=== PATIENT | female | born 2000 | race Caucasian/White ===

== ENCOUNTER 2020-12-06 10:07 | Outpatient (RCR) | payer OTHER, SELFPAY ==
--- NOTE | 2020-12-06 10:30 | PT.OIE ---
Current Diagnoses Dorsalgia, unspecified (12/06/20) Past Medical History (Last Reviewed 11/23/20 @ 10:02 by Kalyan Coles DO) Incontinence in female Migraine headache with aura Motion sickness Upper back pain, chronic Visit Care Team Role Provider Type Kalyan Coles DO Attending Provider Physician Family Provider Primary Care Provider Referring Provider Specialty: [facility] Practice Address: [address] [place] [address], [facility] Email: [email or web address] Physical Therapy Initial Evaluation PT-OP-A Visit Information Start: 12/06/20 07:55 Freq: Status: Active Protocol: Document 12/06/20 10:30 SAK (Rec: 12/07/20 10:25 SAK [id number]) Out-Patient Physical Therapy Visit Information Visit Information Visit Type Initial Evaluation Visit Start Time 10:30 Visit Stop Time 11:15 Total Visit Minutes 45 Visit Number 1 Evaluation Information Evaluation Date 12/06/20 PT-OP-B Current Condition Start: 12/06/20 07:55 Freq: Status: Active Protocol: Document 12/06/20 10:30 SAK (Rec: 12/07/20 10:25 SAK [id number]) Current Condition History of Current Condition Onset Date 3 1/2 years Current Complaints upper back pain History of Current Condition Patient c/o onset of function- limiting upper back pain after multi-day road trip with minimal rest breaks. Pain has continued since that time. States pain increases with prolonged standing or sitting. Does weight-lifting 3 days per week otherwise takes 30 min walks most days for exercise. Patient is a student and will be returning to campus in [place] 12/11/19. Is hoping to decrease her pain and improve her activity tolerance. Denies numbness or tingling. Prior Treatments and Tests medication; muscle relaxant, some helpful. No chiropractic , massage therapy, or PT. Occasionally has used ice or heat with only temporary relief. 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 PT-OP-C Subjective Start: 12/06/20 07:55 Freq: Status: Active Protocol: Document 12/06/20 10:30 SAK (Rec: 12/07/20 15:21 [facility] [id number]) Patient Questionnaires Oswestry Low Back Index Oswestry Score 24% PT-OP-G Mobility & Gait Start: 12/06/20 07:55 Freq: Status: Active Protocol: Document 12/06/20 10:30 SAK (Rec: 12/07/20 15:21 SAK [id number]) OP Mobility Evaluation Functional Movements Squats excess lumber lordosis OP Gait Assessment Comments Gait Comments excess lumbar lordosis with forward trunk lean PT-OP-H Neuro Start: 12/06/20 07:55 Freq: Status: Active Protocol: Document 12/06/20 10:30 SAK (Rec: 12/07/20 15:21 [facility] [id number]) Sensation Evaluation Gross Sensation Gross Sensation WNL PT-OP-J Posture/Palpation/Skin Start: 12/06/20 07:55 Freq: Status: Active Protocol: Document 12/06/20 10:30 SAK (Rec: 12/07/20 15:21 [facility] [id number]) Posture Evaluation Position Standing Head/C-Spine Posture Forward Head T-Spine Posture Flattened L-Spine Posture Increased Lordosis Shoulder Posture (L) Elevated Scapula Posture (L) Neutral,(R) Neutral Arm Posture (L) Internally Rotated,(R) Internally Rotated Pelvis Posture Anteriorly Tilted Weight Distribution Weight Shifted Anterior PT-OP-K Range of Motion Start: 12/06/20 07:55 Freq: Status: Active Protocol: Document 12/06/20 10:30 SAK (Rec: 12/07/20 15:21 [facility] [id number]) Lumbar Spine Range of Motion Lumbar Spine Active ROM Limitations Soft Tissue Tightness Comments patient with ROM WNL extension , sidebending and rotation, only able to get to neutral lumbar spine, no flexion in lumbar region PT-OP-M Strength Start: 12/06/20 07:55 Freq: Status: Active Protocol: Document 12/06/20 10:30 SAK (Rec: 12/07/20 15:21 SAK [id number]) Trunk Strength Trunk Manual Muscle Testing Flexion 3+ Fair+ Extension 4 Good Core Stabilization poor core stabilization ability statically and dynamically with function PT-OP-Q Treatments Start: 12/06/20 07:55 Freq: Status: Active Protocol: Document 12/06/20 10:30 SAK (Rec: 12/07/20 15:26 SAK [id number]) Self-Care/Home Management Treatment Education Patient Education Home Exercise Program,Pain Management,Posture PT-OP-T Assessment and Plan Start: 12/06/20 07:55 Freq: Status: Active Protocol: Document 12/06/20 10:30 SAK (Rec: 12/07/20 15:21 SAK [id number]) Physical Therapy Assessment Rehab Potential Rehabilitation Potential Good Evaluation Complexity Number of Personal Factors/Comorbidities 1-2 Number of Body Systems Impaired 3 Clinical Presentation at Evaluation Evolving Impairments Impairments Pain,Posture,Strength Goals Two Impairment core muscle weakness Mcc Goal (LTG) Patient to be independent and compliant with HEP for purposes of postural correction and core strengthening and stabilization LTG Duration 01/06/21 Three Impairment Pain with usual activities, sitting limited to 1 hour Watchmaker Apprentice Goal (LTG) Decrease pain with all usual activities by at least 50% LTG Duration 01/06/21 One Impairment Postural dysfunction in standing and sitting Watchmaker Apprentice Goal (LTG) Patient to demonstrate good understanding of neutral postural alignment and ability to assume neutral in sitting and standing without cues. LTG Duration 01/06/21 Assessment Summary Assessment Patient presents with function -limiting thoracic pain which appears largely due to postural dysfunction and muscle imbalance, and spinal stabilization weakness, habitual posturing and activities. Feel she would benefit from physical therapy to improve her posture and spinal stabilization ability, provide education for correct positioning for spinal protection and health. She will be returning to campus for college soon so PT will be limited at this site unless her travel plans change. She may need to seek out further PT in [place] once she returns to college. Physical Therapy Plan Frequency and Duration Frequency of Treatment 2x/Week Duration of Treatment 4 Plan of Care Start Date 12/06/20 Plan of Care End Date 01/06/21 Therapeutic Interventions Therapeutic Interventions Home Exercise Program,Manual Therapy,Neuromuscular Re- education,Patient/Caregiver Education,Self-Care/Home Management,Soft Tissue Mobilization,Taping, Therapeutic Activities, Therapeutic Exercises Modalities Cold Pack/Ice Massage,Hot Packs Next Visit Focus/Plan Next Note Type Treatment Note Next Visit Plan Review HEP, further education and training on neutral postural alignment with stabilization exercises. Evaluate sitting posture including when using computer. Add posterior pelvic tilt sitting and standing wall roll -up, segmental bridge with emphasis on lowering phase, knee to chest.
--- NOTE | 2020-12-06 10:30 | PT.OPPOC ---
Physical, Occupational & Speech Therapy At [facility] Current Diagnoses Dorsalgia, unspecified (12/06/20) Visit Care Team Role Provider Type Kalyan Coles DO Attending Provider Physician Family Provider Primary Care Provider Referring Provider Specialty: Family Practice Address: [address] [place] [address], [id number] Email: [email or web address] Plan Of Care PT-OP-T Assessment and Plan Start: 12/06/20 07:55 Freq: Status: Active Protocol: Document 12/06/20 10:30 SAK (Rec: 12/07/20 15:21 SAK [id number]) Physical Therapy Assessment Rehab Potential Rehabilitation Potential Good Evaluation Complexity Number of Personal Factors/Comorbidities 1-2 Number of Body Systems Impaired 3 Clinical Presentation at Evaluation Evolving Impairments Impairments Pain,Posture,Strength Goals Two Impairment core muscle weakness Risk Control Officer Goal (LTG) Patient to be independent and compliant with HEP for purposes of postural correction and core strengthening and stabilization LTG Duration 01/06/21 Three Impairment Pain with usual activities, sitting limited to 1 hour Jail Goal (LTG) Decrease pain with all usual activities by at least 50% LTG Duration 01/06/21 One Impairment Postural dysfunction in standing and sitting Risk Control Officer Goal (LTG) Patient to demonstrate good understanding of neutral postural alignment and ability to assume neutral in sitting and standing without cues. LTG Duration 01/06/21 Assessment Summary Assessment Patient presents with function -limiting thoracic pain which appears largely due to postural dysfunction and muscle imbalance, and spinal stabilization weakness, habitual posturing and activities. Feel she would benefit from physical therapy to improve her posture and spinal stabilization ability, provide education for correct positioning for spinal protection and health. She will be returning to campus for college soon so PT will be limited at this site unless her travel plans change. She may need to seek out further PT in [place] once she returns to college. Physical Therapy Plan Frequency and Duration Frequency of Treatment 2x/Week Duration of Treatment 4 Plan of Care Start Date 12/06/20 Plan of Care End Date 01/06/21 Therapeutic Interventions Therapeutic Interventions Home Exercise Program,Manual Therapy,Neuromuscular Re- education,Patient/Caregiver Education,Self-Care/Home Management,Soft Tissue Mobilization,Taping, Therapeutic Activities, Therapeutic Exercises Modalities Cold Pack/Ice Massage,Hot Packs Next Visit Focus/Plan Next Note Type Treatment Note Next Visit Plan Review HEP, further education and training on neutral postural alignment with stabilization exercises. Evaluate sitting posture including when using computer. Add posterior pelvic tilt sitting and standing wall roll -up, segmental bridge with emphasis on lowering phase, knee to chest. Plan of Care Dates Plan of Care Start Date 12/06/20 Plan of Care End Date 01/06/21 Electronically Signed by: Aicha Kaufman, PT 12/07/20 [id number] Please Sign and Return: I have reviewed this Plan of Care and certify that the skilled therapy services above are required to meet the patient?s needs. Physician Signature Date Printed Name and Credentials Clinical Instructor Signature Printed Name and Credentials
--- NOTE | 2021-03-03 16:08 | PT.OPDS ---
Current Diagnoses Dorsalgia, unspecified (12/06/20) Visit Care Team Role Provider Type Kalyan Coles DO Attending Provider Physician Family Provider Primary Care Provider Referring Provider Specialty: Family Practice Address: [address] [place] [address], [facility] Email: [email or web address] Visit Number Visit Number 1 Discharge Summary PT-OP-B Current Condition Start: 12/06/20 07:55 Freq: Status: Active Protocol: Document 12/06/20 10:30 SAK (Rec: 12/07/20 10:25 SAK [id number]) Current Condition History of Current Condition Onset Date 3 1/2 years Current Complaints upper back pain History of Current Condition Patient c/o onset of function- limiting upper back pain after multi-day road trip with minimal rest breaks. Pain has continued since that time. States pain increases with prolonged standing or sitting. Does weight-lifting 3 days per week otherwise takes 30 min walks most days for exercise. Patient is a student and will be returning to campus in [place] 12/11/19. Is hoping to decrease her pain and improve her activity tolerance. Denies numbness or tingling. Prior Treatments and Tests medication; muscle relaxant, some helpful. No chiropractic , massage therapy, or PT. Occasionally has used ice or heat with only temporary relief. 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 PT-OP-C Subjective Start: 12/06/20 07:55 Freq: Status: Active Protocol: Document 12/06/20 10:30 SAK (Rec: 12/07/20 15:21 SAK [id number]) Patient Questionnaires Oswestry Low Back Index Oswestry Score 24% PT-OP-G Mobility & Gait Start: 12/06/20 07:55 Freq: Status: Active Protocol: Document 12/06/20 10:30 SAK (Rec: 12/07/20 15:21 [facility] [id number]) OP Mobility Evaluation Functional Movements Squats excess lumber lordosis OP Gait Assessment Comments Gait Comments excess lumbar lordosis with forward trunk lean PT-OP-H Neuro Start: 12/06/20 07:55 Freq: Status: Active Protocol: Document 12/06/20 10:30 SAK (Rec: 12/07/20 15:21 [facility] [id number]) Sensation Evaluation Gross Sensation Gross Sensation WNL PT-OP-J Posture/Palpation/Skin Start: 12/06/20 07:55 Freq: Status: Active Protocol: Document 12/06/20 10:30 SAK (Rec: 12/07/20 15:21 [facility] [id number]) Posture Evaluation Position Standing Head/C-Spine Posture Forward Head T-Spine Posture Flattened L-Spine Posture Increased Lordosis Shoulder Posture (L) Elevated Scapula Posture (L) Neutral,(R) Neutral Arm Posture (L) Internally Rotated,(R) Internally Rotated Pelvis Posture Anteriorly Tilted Weight Distribution Weight Shifted Anterior PT-OP-K Range of Motion Start: 12/06/20 07:55 Freq: Status: Active Protocol: Document 12/06/20 10:30 [facility] (Rec: 12/07/20 15:21 [facility] [id number]) Lumbar Spine Range of Motion Lumbar Spine Active ROM Limitations Soft Tissue Tightness Comments patient with ROM WNL extension , sidebending and rotation, only able to get to neutral lumbar spine, no flexion in lumbar region PT-OP-M Strength Start: 12/06/20 07:55 Freq: Status: Active Protocol: Document 12/06/20 10:30 SAK (Rec: 12/07/20 15:21 [facility] [id number]) Trunk Strength Trunk Manual Muscle Testing Flexion 3+ Fair+ Extension 4 Good Core Stabilization poor core stabilization ability statically and dynamically with function PT-OP-T Assessment and Plan Start: 12/06/20 07:55 Freq: Status: Active Protocol: Document 03/03/21 16:07 SAK (Rec: 03/03/21 16:08 [facility] [id number]) Physical Therapy Plan Discharge Physical Therapy Discharge Reasons Patient Request
== END 2021-03-25 10:38 | disposition home or self-care (01) ==
LOC: PHYS 10:07
PROVIDERS: Family Provider Family Medicine; PCP Family Medicine; Referring Provider Family Medicine; Visit Provider Family Medicine
DX: M54.9 Dorsalgia, unspecified (principal)
CPT/HCPCS: 97161; 97535

== ENCOUNTER → 2020-12-10 16:02 | Outpatient (CLI) | payer OTHER, SELFPAY ==
--- NOTE | 2020-12-10 16:07 | DI.RAD.S_ITS ---
PROCEDURE: XR THORACIC SPINE 3V INDICATIONS: Progressive and persistent upper back pain around T8 TECHNIQUE: 3 views of the thoracic spine were acquired. COMPARISON: None. FINDINGS: Bones: No fractures or dislocations. No suspicious bony lesions. Twelve pairs of ribs are noted, and appear intact where visualized. Soft tissues: No paravertebral stripe thickening. IMPRESSION: No trauma found. Slight scoliosis incidentally noted. A definite source of pain is not seen but MR scanning may become necessary. Dictated by: Zhou Genao M.D. on 12/10/2020 at 16:58 Approved by: Zhou Genao M.D. on 12/10/2020 at 16:59
== END ==
PROVIDERS: Family Provider Family Medicine; PCP Family Medicine; Referring Provider Family Medicine; Visit Provider Family Medicine
DX: M54.6 Pain in thoracic spine (principal); G89.29 Other chronic pain
CPT/HCPCS: 72072